=== PATIENT | female | born 1960 | race Caucasian/White ===

== ENCOUNTER 2016-12-08 12:18 | Emergency (ER) | payer BC ==
[2016-12-08 12:23] VITALS: TEMP 98.6; BMI 29.7
--- NOTE | 2016-12-08 13:31 | PDOC ---
History of Present Illness - General History Source: Patient Exam Limitations: No Limitations <Xenia Sheikh - Last Filed: 12/08/16 18:54> <Jessie Ruiz - Last Filed: 12/08/16 21:38> - General Chief Complaint: Chest Pain Stated Complaint: CHEST PAIN (PCP SENT) Time Seen by Provider: 12/08/16 13:28 - History of Present Illness Initial Comments: CHIEF COMPLAINT: 55 y/o afebrile female with PMH HTN sent in by Dr. Torres for chest pain and SOB. HISTORY OF PRESENT ILLNESS: The patient states that she had pneumonia 2 weeks ago and was treated with amoxicillin and prednisone, both of which she finished. She states she started feeling SOB again last night and this morning she had chest pain in the front, and admits it feels like she has pneumonia again. She saw her doctor today who sent her here. She denies radiation of CP and states it was the worst this morning. She denies f/c, n/v/d, ROSA, cough, weakness, abd pain, back pain, hematuria, dysuria. Vital signs on arrival are notable for pulse of 56. REVIEW OF SYSTEMS: GENERAL/CONSTITUTIONAL: No fever/chills. No weakness. No weight change. HEAD, EYES, EARS, NOSE AND THROAT: No change in vision. No ear pain or discharge. No sore throat. CARDIOVASCULAR: +CP and SOB. RESPIRATORY: No cough, wheezing, or hemoptysis. GASTROINTESTINAL: No abd pain, nausea, vomiting, diarrhea. GENITOURINARY: No dysuria, frequency, or change in urination. MUSCULOSKELETAL: No joint or muscle swelling or pain. No neck or back pain. SKIN: No rash or easy bruising. NEUROLOGIC: No headache, vertigo, loss of consciousness, or loss of sensation. PHYSICAL EXAM: GENERAL: The patient is awake, alert, and fully oriented, in no acute distress. She is well appearing, ambulatory and speaks full sentences. HEAD: Normal with no signs of trauma. ENT: Pupils equal, round and reactive to light, extraocular movements intact, sclera anicteric, conjunctiva clear. Neck supple. LUNGS: Clear to auscultation bilaterally. Normal excursion. No respiratory distress or use of accessory muscles. CV: RRR, S1/S2, no MRG. Cap refill < 2 sec. CHEST WALL: No reproducible anterior chest wall TTP. ABDOMEN: Soft, non-distended, non-tender even to deep palpation, no hepatomegaly or splenomegaly, no masses. EXTREMITIES: Normal range of motion, no edema. NEUROLOGICAL: Normal speech, normal gait. CN II-XII grossly intact. PSYCH: Normal mood, normal affect. SKIN: Warm, dry, normal turgor, no rashes or lesions noted. (Xenia Sheikh) Past History - Past Medical History HTN: Yes - Psycho/Social/Smoking Cessation Hx Anxiety: No Suicidal Ideation: No Smoking History: Never smoked Have you smoked in the past 12 months: No Information on smoking cessation initiated: No Hx Alcohol Use: No Drug/Substance Use Hx: No Substance Use Type: None <Xenia Sheikh - Last Filed: 12/08/16 18:54> <Jessie Ruiz - Last Filed: 12/08/16 21:38> - Past Medical History Allergies/Adverse Reactions: Allergies Allergy/AdvReac Type Severity Reaction Status Date / Time No Known Allergies Allergy Verified 12/08/16 12:20 Home Medications: Ambulatory Orders NK [No Known Home Medication] 12/08/16 - Vital Signs Last Vital Signs Temp Pulse Resp BP Pulse Ox 98.6 F 71 16 151/105 98 12/08/16 12:21 12/08/16 20:25 12/08/16 20:25 12/08/16 20:25 12/08/16 20:25 Heart Score/ECG Review <Xenia Sheikh - Last Filed: 12/08/16 18:54> <Jessie Ruiz - Last Filed: 12/08/16 21:38> - ECG Intrepretation Comment:: Twelve-lead EKG was performed and reviewed by Dr. Tavares. Sinus rhythm with supraventricular complexes and with frequent premature ventricular complexes. Rightward axis. Impression: Borderline twelve-lead EKG (Xenia Sheikh) ED Treatment Course - LABORATORY CBC & Chemistry Diagram: 12/08/16 13:45 12/08/16 13:45 <Xenia Sheikh - Last Filed: 12/08/16 18:54> - LABORATORY CBC & Chemistry Diagram: 12/08/16 13:45 12/08/16 13:45 <Jessie Ruiz - Last Filed: 12/08/16 21:38> - ADDITIONAL ORDERS Additional order review: Laboratory Results 12/08/16 12/08/16 19:48 13:45 Sodium 141 Potassium 4.4 Chloride 104 Carbon Dioxide 28 Anion Gap 9 BUN 19 H Creatinine 0.7 Creat Clearance w eGFR > 60 Random Glucose 146 H Calcium 9.6 Total Bilirubin 0.4 AST 22 ALT 31 Alkaline Phosphatase 75 Creatine Kinase 62 74 Troponin I < 0.02 < 0.02 Total Protein 6.7 Albumin 3.9 12/08/16 13:45 RBC 5.23 H MCV 86.9 MCHC 33.2 RDW 13.5 MPV 8.2 Neutrophils % 64.1 Lymphocytes % 24.5 Monocytes % 5.7 Eosinophils % 5.1 H Basophils % 0.6 - Medications Given in the ED: ED Medications Discontinued Medications Generic Name Dose Route Start Last Admin Trade Name Freq PRN Reason Stop Dose Admin Enalaprilat 2.5 mg 12/08/16 20:26 12/08/16 20:30 Vasotec Injection - IVPB 12/08/16 20:27 2.5 mg ONCE ONE Administration Progress Note <Xenia Sheikh - Last Filed: 12/08/16 18:54> <Jessie Ruiz - Last Filed: 12/08/16 21:38> - Progress Note Progress Note: PATIENT C/O BILATERAL ANKLE SWELLING. 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 PATIENT WAS INFORMED THAT THIS MAY BE THE CAUSE OF HER ANKLE SWELLING. REPEAT B/P 125/90. WILL D/C TO HOME WITH F/U PCP. (Jessie Ruiz) Medical Decision Making <Xenia Sheikh - Last Filed: 12/08/16 18:54> <Jessie Ruiz - Last Filed: 12/08/16 21:38> - Medical Decision Making A/P: 55 y/o afebrile female with SOB and chest pain. She is concerned with PNA. Plan is as follows: 1. Labs 2. CXR 3. EKG EKG - runs of bigeminy CXR IMPRESSION: No active pulmonary disease. Labs unremarkable. Spoke with Dr. Tavares and given EKG findings will do 2nd troponin at 7:45pm. I am signing this patient out to my colleague: AUGUSTO Ruiz In brief, this patient is being seen in the ED for a chief complaint of: Chest pain I have completed the initial assessment interview note and have ordered: labs, EKG, CXR I have reviewed the following results: Labs, EKG, CXR Pending results are: 2nd troponin to be drawn at 7:45pm Please call the PCP: Dr. Torres Plan for disposition is as follows: Discharge for Cardio follow up if 2nd troponin is negative (Xenia Sheikh) *DC/Admit/Observation/Transfer <Xenia Sheikh - Last Filed: 12/08/16 18:54> - Discharge Dispostion Admit: No <Jessie Ruiz - Last Filed: 12/08/16 21:38> Diagnosis at time of Disposition: Bigeminy Chest pain Qualifiers: Chest pain type: unspecified Qualified Code(s): R07.9 - Chest pain, unspecified - Discharge Dispostion Disposition: HOME Condition at time of disposition: Improved - Referrals Referrals: Carter Coronel MD [Primary Care Provider] - Adolfo Samuels MD [Staff Physician] - 1 week - Patient Instructions Printed Discharge Instructions: DI for Chest Pain Additional Instructions: Discharge Instructions: -Your EKG showed a rhythm with bigeminy. -Please call Dr. Samuels (Cardiology) within 1 week to schedule a follow up appointment -Return to the ER with any worsening or concerning symptoms. Print Language: YI
[2016-12-08 13:53] LABS: BASOPHIL 0.6 % (0-2.0); EOSINOPHIL 5.1 % (0-4.5); MCH 28.8 pg (25.7-33.7); MCHC 33.2 g/dl (32.0-36.0); MEAN CELL VOLUME 86.9 fl (80-96); MEAN PLT VOLUME 8.2 fl (7.5-11.1); NEUTROPHILS 64.1 % (42.8-82.8); PLATELET COUNT 114 K/MM3 (134-434); RDW 13.5 % (11.6-15.6); WHITE BLOOD COUNT 5.4 K/mm3 (4.0-10.0)
[2016-12-08 14:20] LABS: ALBUMIN 3.9 g/dl (3.4-5.0); ANION GAP 9 (8-16); BILIRUBIN,TOTAL 0.4 mg/dL (0.2-1.0); CALCIUM 9.6 mg/dL (8.5-10.1); CO2 28 mmol/L (21-32); CREATININE 0.7 mg/dL (0.55-1.02); GLUCOSE,RANDOM 146 mg/dL (74-106); SGOT/AST 22 U/L (15-37); SGPT/ALT 31 U/L (12-78); TOT PROT 6.7 g/dl (6.4-8.2)
[2016-12-08 14:22] LABS: ALK PHOS 75 U/L (45-117); TROPONIN I < 0.02 ng/ml (0.00-0.05)
[2016-12-08] MEDS ORDERED: ENALAPRILAT DIHYDRATE 2.5 MG/2 ML VIAL IVPB ONE ×2 (20:26→20:31)
[2016-12-08 20:27] VITALS: PULSE 71
[2016-12-08 20:37] LABS: TROPONIN I < 0.02 ng/ml (0.00-0.05)
[2016-12-08 21:54] VITALS: BP 124/90
--- NOTE | 2016-12-09 10:53 | EKG ---
Test Reason : Blood Pressure : / mmHG Vent. Rate : 071 BPM Atrial Rate : 065 BPM P-R Int : 144 ms QRS Dur : 090 ms QT Int : 404 ms P-R-T Axes : -09 108 011 degrees QTc Int : 439 ms SINUS RHYTHM WITH FREQUENT PREMATURE VENTRICULAR COMPLEXES WHEN COMPARED WITH ECG OF 15-MAY-2009 08:58, PREMATURE VENTRICULAR COMPLEXES ARE NOW PRESENT Confirmed by ROB STOLL MD ([id number]) on 12/09/2016 10:52:58 AM Referred By: Confirmed By:ROB STOLL MD
== END 2016-12-08 22:16 | disposition home or self-care (01) ==
LOC: JER 12:18
PROC: 3E033GC Introduction of Other Therapeutic Substance into Peripheral Vein, Percutaneous Approach (ICD-10-PCS; principal; 2016-12-08)
DX: R00.8 Other abnormalities of heart beat (principal); R07.9 Chest pain, unspecified
CPT/HCPCS: 36415; 71020-TC; 80053; 82550; 84484; 85025; 93005; 93010; 99283-25

== ENCOUNTER 2018-10-12 10:17 | Day surgery (SDC) | payer BC ==
[2018-10-07 13:09] VITALS: BMI 30.2
--- NOTE | 2018-10-12 07:57 | HP ---
[facility] - Chief Complaint Chief Complaint: right knee pain - Past Medical History Allergies/Adverse Reactions: Allergies Allergy/AdvReac Type Severity Reaction Status Date / Time No Known Drug Allergies Allergy Verified 10/07/18 12:59 - Current Medications Current Medications: Home Medications Medication Instructions Recorded Lisinopril 20 mg PO DAILY 10/07/18 [facility]ellite Physical Exam - Physical Examination General Appearance: Well Nourished, Well Developed, Alert & Oriented x3 ENT: Clear Lung: Normal air movement Heart: Regular rate & rhythm Extremities: Other (right knee- + swelling, + ttp medially, dec rom, + mcmurrays , nvi MRI + mmt) Neurological: Intact, Alert, Oriented [facility] Impression/Plan - Impression/Plan Impression: right knee internal derangement Operative Procedure: right knee arthroscopy Date to be Performed: 10/12/18
[2018-10-12] MEDS ORDERED: LIDOCAINE 1%/EPI 1:100000 (20 ML MULTI DOSE VIAL) ONE (11:38)
[2018-10-12] MEDS ORDERED: BUPIVACAINE HCL/PF 0.5% (5MG/ML) 10 ML VIAL ONE (11:38)
[2018-10-12] MEDS ORDERED: DEXAMETHASONE SOD PHOSPHATE 4 MG/1 ML VIAL ONE ×2 (12:28→13:02)
[2018-10-12] MEDS ORDERED: ONDANSETRON 4 MG/2 ML VIAL ONE ×2 (12:28→13:02)
[2018-10-12] MEDS ORDERED: MIDAZOLAM HCL 2 MG/2 ML SINGLE DOSE VIAL ONE (12:29)
[2018-10-12] MEDS ORDERED: PROPOFOL 20 ML ONE (12:34)
[2018-10-12] MEDS ORDERED: SUCCINYLCHOLINE CHLORIDE 200 MG/10 ML VIAL ONE (12:34)
--- NOTE | 2018-10-12 13:12 | OP ---
Operative Note - Note: Operative Date: 10/12/18 (juan) Pre-Operative Diagnosis: right knee internal derangement Operation: right knee arthroscopy with PMM Post-Operative Diagnosis: Same as Pre-op Surgeon: Dhaval Farley Anesthesiologist/APPRENTICE LINEMAN THIRD STEP: Joseph Wei Anesthesia: General, Local Specimens Removed: shavings Estimated Blood Loss (mls): 5 Operative Report Dictated: Yes
[2018-10-12] MEDS ORDERED: ONDANSETRON 4 MG/2 ML VIAL IVPUSH PRN (13:37)
[2018-10-12] MEDS ORDERED: oxyCODONE HCL 5 MG TABLET PO PRN (13:37)
[2018-10-12] MEDS ORDERED: LACTATED RINGERS SOLUTION 1,000 ML IV SCH (13:45)
[2018-10-12 14:20] VITALS: TEMP 97.9
--- NOTE | 2018-10-12 14:59 | OP ---
DATE OF OPERATION: 10/12/2018 PREOPERATIVE DIAGNOSIS: Internal derangement, right knee. POSTOPERATIVE DIAGNOSIS: Internal derangement, right knee. PROCEDURE: Arthroscopy, right knee, partial medial and lateral meniscectomy. SURGICAL ATTENDING: Dhaval Farley MD ANESTHESIA: General with LMA. CLOSURE: Nylon 4-0. COMPLICATIONS: None. CONDITION: To recovery room in stable condition. DESCRIPTION OF PROCEDURE: Patient was taken to the operating room on October 12, 2018. General anesthesia with LMA was administered by the anesthesiologist. The right lower extremity was prepped and draped in the usual sterile fashion. The medial and lateral infrapatellar portal sites were infiltrated with 1% Xylocaine with epinephrine. Both portals were then made with a 15 blade followed by a blunt trocar. The scope was placed in the lateral infrapatellar portal and up into the suprapatellar pouch. The knee was inflated then with a cocktail of 10 mL of 1% Xylocaine, 10 mL of 0.5% Marcaine, and 20 mL of arthroscopic saline. After allowing the anesthetic to work, the procedure was performed. The pouch was visualized to be clean. The medial and lateral gutters were visualized to be clean. The undersurface of the patella and trochlea were visualized to be intact. With valgus stress on the knee, the medial compartment was entered. The medial meniscus was visualized, probed, and found to have a flap tear of the posterior horn. This was debrided back to smooth stable meniscal tissue using a meniscal biter and arthroscopic shaver. The medial femoral condyle was run and found to be visually intact, as well as the medial tibial plateau. At 90 degrees, the ACL was visualized, probed, and found to be intact. In the figure-4 position, the lateral compartment was entered. The lateral meniscus had some radial tearing of its midportion. This was debrided back to smooth stable meniscal tissue with a meniscal biter and arthroscopic shaver. The lateral femoral condyle was run and found to be intact, as was the lateral tibial plateau. The knee was irrigated with copious amounts of irrigation. The portals were closed with 4-0 nylon. Prior to closure, 20 mL of 0.5% Marcaine was infused through the outflow portal of the scope trocar for postoperative analgesia. A sterile pressure dressing was placed on the knee. Patient awakened from anesthesia and transferred to recovery in stable condition. No complication. Estimated blood loss negligible. DHAVAL FARLEY M.D. YOSELIN/[id number]
[2018-10-12 15:07] VITALS: BP 145/90; PULSE 65
== END 2018-10-12 14:55 | disposition home or self-care (01) ==
LOC: FASU 10:17
PROVIDERS: ATTEND Orthopaedic Surgery
PROC: 0SBC4ZZ Excision of Right Knee Joint, Percutaneous Endoscopic Approach (ICD-10-PCS; 2018-10-12)
PROC: 0SBC4ZZ Excision of Right Knee Joint, Percutaneous Endoscopic Approach (ICD-10-PCS; principal; 2018-10-12 12:51)
DX: M23.221 Derangement of posterior horn of medial meniscus due to old tear or injury, right knee (principal); M23.261 Derangement of other lateral meniscus due to old tear or injury, right knee
CPT/HCPCS: 94760

== ENCOUNTER 2021-04-20 09:23 | Emergency (ER) | payer BC ==
[2021-04-20 09:33] VITALS: TEMP 97.6; BMI 33.5
[2021-04-20] MEDS ORDERED: KETOROLAC TROMETHAMINE 30 MG/1 ML VIAL IM ONE (10:35)
[2021-04-20] MEDS ORDERED: KETOROLAC TROMETHAMINE 30 MG/1 ML VIAL ONE ×2 (11:07→11:08)
[2021-04-20 13:53] VITALS: BP 167/78; PULSE 66
== END 2021-04-20 13:53 | disposition home or self-care (01) ==
LOC: JER 09:23
PROC: 3E0233Z Introduction of Anti-inflammatory into Muscle, Percutaneous Approach (ICD-10-PCS; principal; 2021-04-20)
DX: M25.562 Pain in left knee (principal)
CPT/HCPCS: 73562-TC-LT-FY; 93971-TC; 99284-25

== ENCOUNTER 2022-02-24 10:35 | Emergency (ER) | payer BC ==
[2022-02-24 10:46] VITALS: TEMP 97.6; BMI 35.2
[2022-02-24 12:12] VITALS: RESP 15
[2022-02-24] MEDS ORDERED: ACETAMINOPHEN 325 MG TABLET (FP) PO ONE (12:32)
[2022-02-24] MEDS ORDERED: ACETAMINOPHEN 325 MG TABLET (FP) ONE (12:33)
[2022-02-24 13:07] LABS: BASO % 0.4 % (0-2.0); HEMATOCRIT 42.7 % (32.4-45.2); HEMOGLOBIN 14.2 GM/dL (10.7-15.3); LYMPH % 33.1 % (8-40); MCH 29.2 pg (25.7-33.7); MCHC 33.1 g/dl (32.0-36.0); MEAN CELL VOLUME 88.3 fl (80-96); MEAN PLT VOLUME 8.5 fl (7.5-11.1); MONO % 8.3 % (3.8-10.2); NEUT % 53.2 % (42.8-82.8); PLATELET COUNT 168 10^3/uL (134-434); RBC 4.84 M/mm3 (3.60-5.2); RDW 13.4 % (11.6-15.6); WHITE BLOOD COUNT 5.1 K/mm3 (4.0-10.0)
[2022-02-24 13:13] LABS: PROTHROMBIN TIME (PATIENT) 11.5 SEC (9.7-13.0)
[2022-02-24 13:16] LABS: ACTIVATED PTT 29.2 SECONDS (25.2-36.5)
[2022-02-24 13:23] LABS: CHLORIDE 105 mmol/L (98-107); SODIUM 138 mmol/L (136-145)
[2022-02-24 13:26] LABS: ALBUMIN 3.8 g/dl (3.4-5.0); BLOOD UREA NITROGEN 24.6 mg/dL (7-18); CALCIUM 9.3 mg/dL (8.5-10.1); CO2 29 mmol/L (21-32); GLUCOSE,RANDOM 92 mg/dL (74-106)
[2022-02-24 13:28] LABS: CREATININE 0.8 mg/dL (0.55-1.3)
[2022-02-24 13:30] LABS: BILIRUBIN,TOTAL 0.5 mg/dL (0.2-1); SGOT/AST 68 U/L (15-37); SGPT/ALT 39 U/L (13-61); TOT PROT 7.2 g/dl (6.4-8.2)
[2022-02-24 13:32] LABS: ALK PHOS 89 U/L (45-117)
[2022-02-24 13:35] LABS: N-TERMINAL BNP 239.2 pg/ml (5-125)
[2022-02-24 13:36] LABS: ANION GAP 4 MMOL/L (8-16)
[2022-02-24] MEDS ORDERED: FUROSEMIDE 20 MG TABLET (FP) PO ONE (13:48)
[2022-02-24] MEDS ORDERED: FUROSEMIDE 20 MG TABLET (FP) ONE (14:10)
[2022-02-24 15:58] VITALS: BP 144/73; PULSE 80
[2022-02-24 16:07] LABS: CHLORIDE 106 mmol/L (98-107); SODIUM 139 mmol/L (136-145)
[2022-02-24 16:08] LABS: CALCIUM 9.4 mg/dL (8.5-10.1)
[2022-02-24 16:09] LABS: BLOOD UREA NITROGEN 23.6 mg/dL (7-18); CO2 29 mmol/L (21-32); GLUCOSE,RANDOM 83 mg/dL (74-106)
[2022-02-24 16:12] LABS: ANION GAP 4 MMOL/L (8-16); CREATININE 0.8 mg/dL (0.55-1.3)
== END 2022-02-24 15:59 | disposition home or self-care (01) ==
LOC: JER 10:35
DX: M79.604 Pain in right leg (principal); M79.605 Pain in left leg
CPT/HCPCS: 36415; 71045-TC-FY; 80048; 80053; 83880; 84484; 85025; 85610; 85730; 93005; 93010; 99285-25; C9803-CS; U0003; U0005

== ENCOUNTER 2022-04-22 08:40 | Day surgery (SDC) | payer BC ==
[2022-04-21 09:18] VITALS: BMI 36.1
[~2022-04-22 08:40] MED LIST: BUPIVICAINE 0.25%/MORPH PF/KETOROLAC - 51ML DISP.SYRINGE IA ONE
[2022-04-22] MEDS ORDERED: CEFAZOLIN 2 GM in DEXTROSE 5%-WATER - 50 ML IVPB ONE (08:44)
[2022-04-22] MEDS ORDERED: CELECOXIB 200 MG CAPSULE PO ONE (08:44)
[2022-04-22] MEDS ORDERED: TRANEXAMIC ACID 1000 MG/10 ML VIAL IVPUSH ONE (08:44)
[2022-04-22] MEDS ORDERED: MIDAZOLAM HCL 2 MG/2 ML SINGLE DOSE VIAL ONE (09:53)
[2022-04-22] MEDS ORDERED: ROPIVACAINE HCL 0.5% 30ML VIAL ONE (10:19)
[2022-04-22] MEDS ORDERED: THROMBIN (BOVINE) 5,000 UNIT VIAL TP ONE (10:47)
[2022-04-22] MEDS ORDERED: ceFAZolin SODIUM 1 GM VIAL ONE (10:47)
[2022-04-22] MEDS ORDERED: ONDANSETRON 4 MG/2 ML VIAL IVPUSH PRN (10:50)
[2022-04-22] MEDS ORDERED: oxyCODONE HCL 5 MG TABLET PO PRN ×2 (10:50)
[2022-04-22] MEDS ORDERED: BUPIVICAINE 0.25%/MORPH PF/KETOROLAC - 51ML DISP.SYRINGE IA ONE ×2 (12:14→13:11)
[2022-04-22] MEDS ORDERED: PHENYLEPHRINE HCL 10 MG/1 ML SINGLE DOSE VIAL ONE (12:27)
[2022-04-22] MEDS ORDERED: SODIUM CHLORIDE 0.9% P/F 10 ML VIAL IJ ONE ×2 (12:28→12:29)
[2022-04-22] MEDS ORDERED: PROPOFOL 20 ML ONE (12:30)
[2022-04-22] MEDS: KETOROLAC TROMETHAMINE 30 MG/1 ML VIAL IVPUSH SCH ×3 (14:05→17:43)
[2022-04-22] MEDS ORDERED: KETOROLAC TROMETHAMINE 30 MG/1 ML VIAL ONE (14:08)
[2022-04-22] MEDS ORDERED: ACETAMINOPHEN INJECTION 100 ML IVPB ONE (14:08)
[2022-04-22] MEDS: ACETAMINOPHEN 1000 MG/100 ML BAG IVPB ONE ×2 (14:10→16:14)
[2022-04-22] MEDS: LACTATED RINGERS SOLUTION 1,000 ML IV SCH (16:14)
[2022-04-22] MEDS: CEFAZOLIN SODIUM 2 GM in DEXTROSE 5%-WATER 100 ML IVPB SCH (20:13)
[2022-04-22] MEDS: oxyCODONE HCL 10 MG SUSTAINED ACTING TABLET PO SCH (21:46)
[2022-04-22] MEDS: SENNOSIDES/DOCUSATE COMBO (SENNA PLUS) TABLET (UD) PO SCH (21:48)
[2022-04-22] MEDS: LISINOPRIL 20 MG TABLET PO SCH (21:48)
[2022-04-22] MEDS ORDERED: rOPINIRole HCL 1 MG TABLET (FP) PO SCH (22:00)
[2022-04-22] MEDS ORDERED: ATORVASTATIN CA 10 MG TABLET (FP) PO SCH (22:00)
[2022-04-23] MEDS: CEFAZOLIN SODIUM 2 GM in DEXTROSE 5%-WATER 100 ML IVPB SCH (03:02)
[2022-04-23] MEDS ORDERED: ASPIRIN 325 MG TABLET PO SCH (08:00)
[2022-04-23] MEDS: LISINOPRIL 20 MG TABLET PO SCH (09:06)
[2022-04-23] MEDS: SENNOSIDES/DOCUSATE COMBO (SENNA PLUS) TABLET (UD) PO SCH (09:06)
[2022-04-23] MEDS: oxyCODONE HCL 10 MG SUSTAINED ACTING TABLET PO SCH (09:06)
[2022-04-23] MEDS ORDERED: PANTOPRAZOLE 40 MG TABLET PO SCH (10:00)
[2022-04-23] MEDS ORDERED: amLODIPine BESYLATE 5 MG TABLET (FP) PO SCH (10:00)
[2022-04-23] MEDS ORDERED: rOPINIRole HCL 1 MG TABLET (FP) PO SCH (10:00)
[2022-04-23] MEDS ORDERED: MULTIVITAMINS (DAILY MVI) TABLET (FP) PO SCH (10:00)
[2022-04-23] MEDS: LACTATED RINGERS SOLUTION 1,000 ML IV SCH (10:46)
[2022-04-23 14:31] VITALS: BP 132/72; PULSE 68; RESP 18; TEMP 98.6
== END 2022-04-23 15:40 | disposition home health service (06) ==
LOC: FASUSAT 08:40 → FM/S 15:38 → FASUSAT 04-23 15:40
PROVIDERS: ATTEND Orthopaedic Surgery
PROC: 8E0Y0CZ Robotic Assisted Procedure of Lower Extremity, Open Approach (ICD-10-PCS; 2022-04-22)
PROC: 0SRD0L9 Replacement of Left Knee Joint with Medial Unicondylar Synthetic Substitute, Cemented, Open Approach (ICD-10-PCS; principal; 2022-04-22 12:11)
DX: M17.12 Unilateral primary osteoarthritis, left knee (principal)
CPT/HCPCS: 20985; 27446; C1776; S2900; 73560-TC-LT-FY; 94760; 97010-GP; 97116-GP; 97162-GP; C1889

== ENCOUNTER 2022-07-22 04:07 | Emergency (ER) | payer BC ==
[2022-07-22 04:21] VITALS: RESP 18; TEMP 98; BMI 35.5
[2022-07-22] MEDS ORDERED: LIDOCAINE 5% TOPICAL PATCH TP ONE (04:51)
[2022-07-22] MEDS ORDERED: morphine CARPU-JECT 4 MG/1 ML DISP.SYRIN IVPUSH ONE (04:58)
[2022-07-22] MEDS ORDERED: morphine SULFATE 4 MG/ML VIAL ONE (05:51)
[2022-07-22] MEDS ORDERED: LIDOCAINE 5% TOPICAL PATCH ONE (05:51)
[2022-07-22 06:20] LABS: BASO % 0.6 % (0-2.0); EOS % 3.9 % (0-4.5); HEMATOCRIT 43.7 % (32.4-45.2); HEMOGLOBIN 14.4 GM/dL (10.7-15.3); LYMPH % 31.4 % (8-40); MCH 28.1 pg (25.7-33.7); MEAN CELL VOLUME 85.3 fl (80-96); MEAN PLT VOLUME 8.4 fl (7.5-11.1); MONO % 7.5 % (3.8-10.2); NEUT % 56.6 % (42.8-82.8); PLATELET COUNT 160 10^3/uL (134-434); RBC 5.13 M/mm3 (3.60-5.2); RDW 14.3 % (11.6-15.6); WHITE BLOOD COUNT 5.2 K/mm3 (4.0-10.0)
[2022-07-22 06:37] LABS: ALBUMIN 3.9 g/dl (3.4-5.0); BLOOD UREA NITROGEN 27.8 mg/dL (7-18); CALCIUM 9.6 mg/dL (8.5-10.1)
[2022-07-22 06:40] LABS: CREATININE 0.9 mg/dL (0.55-1.3)
[2022-07-22 06:41] LABS: BILIRUBIN,TOTAL 0.4 mg/dL (0.2-1); TOT PROT 7.2 g/dl (6.4-8.2)
[2022-07-22] MEDS ORDERED: KETOROLAC TROMETHAMINE 15 MG/ML VIAL IVPUSH ONE (08:42)
[2022-07-22] MEDS ORDERED: KETOROLAC TROMETHAMINE 15 MG/ML VIAL ONE (08:52)
[2022-07-22 11:22] LABS: URINE APPEARANCE CLEAR; URINE BILIRUBIN NEGATIVE (NEGATIVE); URINE COLOR YELLOW; URINE GLUCOSE (UA) NEGATIVE (NEGATIVE); URINE KETONE NEGATIVE (NEGATIVE); URINE LEUK ESTERASE NEGATIVE (NEGATIVE); URINE NITRITE NEGATIVE (NEGATIVE); URINE PROTEIN NEGATIVE (NEGATIVE); URINE UROBILINOGEN 0.2 mg/dL (0.2-1.0)
[2022-07-22 11:41] VITALS: BP 140/83; PULSE 86
[2022-07-22] MEDS ORDERED: LIDOCAINE PATCH REMOVAL MC SCH (22:00)
== END 2022-07-22 11:42 | disposition home or self-care (01) ==
LOC: JER 04:07
PROC: 3E0333Z Introduction of Anti-inflammatory into Peripheral Vein, Percutaneous Approach (ICD-10-PCS; principal; 2022-07-22)
PROC: 3E033NZ Introduction of Analgesics, Hypnotics, Sedatives into Peripheral Vein, Percutaneous Approach (ICD-10-PCS; 2022-07-22)
DX: M54.42 Lumbago with sciatica, left side (principal)
CPT/HCPCS: 36415; 72131-TC; 72192-TC; 80053; 81003; 85025; 87086; 99285-25

== ENCOUNTER 2022-07-23 13:32 | Emergency (ER) | payer BC ==
[2022-07-23 13:38] VITALS: BP 129/73; RESP 16; TEMP 98.5; BMI 36.1
[2022-07-23] MEDS ORDERED: morphine CARPU-JECT 4 MG/1 ML DISP.SYRIN IVPUSH ONE (15:03)
[2022-07-23] MEDS ORDERED: SODIUM CHLORIDE 0.9% 500 ML INFUS.BAG IV ONE (15:04)
[2022-07-23] MEDS ORDERED: KETOROLAC TROMETHAMINE 30 MG/1 ML VIAL IVPUSH ONE (15:04)
[2022-07-23] MEDS ORDERED: KETOROLAC TROMETHAMINE 30 MG/1 ML VIAL ONE (15:19)
[2022-07-23] MEDS ORDERED: morphine SULFATE 4 MG/ML VIAL ONE (15:24)
[2022-07-23] MEDS ORDERED: predniSONE 20 MG TABLET (UD) PO ONE (15:51)
[2022-07-23] MEDS ORDERED: predniSONE 20 MG TABLET (UD) ONE (15:54)
[2022-07-23] MEDS ORDERED: LIDOCAINE 5% TOPICAL PATCH TP ONE (16:43)
[2022-07-23] MEDS ORDERED: LIDOCAINE 5% TOPICAL PATCH ONE (16:47)
[2022-07-23] MEDS ORDERED: diazePAM 5 MG TABLET PO ONE (17:30)
[2022-07-23] MEDS ORDERED: diazePAM 5 MG TABLET ONE (17:32)
[2022-07-23 18:41] VITALS: PULSE 89
[2022-07-24] MEDS ORDERED: LIDOCAINE PATCH REMOVAL MC SCH (05:00)
== END 2022-07-23 18:41 | disposition home or self-care (01) ==
LOC: JERFT 13:32
PROC: 3E033GC Introduction of Other Therapeutic Substance into Peripheral Vein, Percutaneous Approach (ICD-10-PCS; principal; 2022-07-23)
DX: M54.42 Lumbago with sciatica, left side (principal)
CPT/HCPCS: 99284-25